=== PATIENT | male | born 1955 | race Caucasian/White ===

== ENCOUNTER → 2024-12-24 09:41 | Outpatient (REF) | payer OTHER, SELFPAY ==
[2024-12-24] VITALS (9 sets, daily range): BP systolic 69–126; BP diastolic 55–78; BMI 17.5
[2024-12-24] MEDS: ANCEF 10 IV (10:57)
== END ==
LOC: RADI 09:41
PROVIDERS: ATTENDING PHYSICIAN Physician Assistant Medical
DX: C08.9 Malignant neoplasm of major salivary gland, unspecified (principal)
CPT/HCPCS: 36561; 76937; 77001; 99152; C1788

== ENCOUNTER 2025-02-14 16:48 | Emergency (ER) | payer OTHER, SELFPAY ==
[2025-02-14] VITALS (12 sets, daily range): BP systolic 77–122; BP diastolic 45–80; BMI 16.3
[2025-02-14 17:21] LABS: Hematocrit 26.3 % (39.0-52.0); Hemoglobin 8.7 g/dL (13.0-18.0); Mean Corp Hgb Conc. 33.1 g/dL (33.0-37.0); Mean Corpuscular Volume 101.5 fL (80.0-94.0); Nucleated Red Blood Cells % 0 % (-); Platelet Count 103 10^3/uL (130-400); Red Cell Dist. Width 16.6 % (11.5-14.5)
[2025-02-14 17:41] LABS: ALT (SGPT) 11 U/L (0-50); AST (SGOT) 21 U/L (17-59); Albumin 3.1 g/dl (3.5-5.0); Alkaline Phosphatase 57 U/L (38-126); Blood Urea Nitrogen 12 mg/dl (9-20); Calcium 8.1 mg/dl (8.4-10.2); Carbon Dioxide 29 mmol/L (22-30); Chloride 105 mmol/L (98-107); Estimated Creatinine Clearance 77 ml/min; Glucose 90 mg/dl (70-99); Potassium 4.7 mmol/L (3.5-5.1); Sodium 134 mmol/L (135-145); Total Protein 5.3 g/dl (6.3-8.2); eGFR > 60.00
[2025-02-14] MEDS: NSS 1000 IV (17:44)
--- NOTE | 2025-02-14 17:53 | ED.GENMED ---
History of Present Illness
General
Chief Complaint: Blood Pressure Problem
Source: patient and spouse
Time Seen by Provider: 02/14/25 17:00
History of Present Illness
History of Present Illness:
This patient is a very pleasant 69-year-old male with a diagnosis of salivary gland cancer, currently getting treatment. He suffers from episodes of hypotension, likely related to poor p.o. intake and has a nurse who comes to his home to administer
IV fluids twice a week. Patient was normal tensive yesterday, but when he went to his oncologist today he was noted to be hypotensive. He was given IV fluid with minimal relief of hypotension. Patient is without complaints. He denies chest pain,
shortness of breath, dizziness/lightheadedness, abdominal pain, vomiting, extreme fatigue. He did state that he felt a little nauseous this morning but that is now resolved. He is eager to go home and wants to eat now.
Past History
Past History
ED Past Medical History: Other (Salivary gland cancer)
ED Past Surgical History: Orthopedic and Other (hernia, appendectomy, dental)
Social History
Tobacco: Smoker
Alcohol: Occasional
Drug: None
Personal:
Living: with family
Phy Exam
Physical Exam
Physical Exam:
GENERAL: Alert , in no apparent distress, very thin
EYE: pupils equal and reactive
NECK: Supple, no significant adenopathy.
ENT: o/p clr, mm slightly dry
CARDIAC: Regular rate and rhythm .
LUNGS: Clear breath sounds bilaterally, no acute respiratory distress, no wheezes/rales/rhonchi
ABDOMEN: Soft, without focal tenderness, no r/g, no cvat
NEUROLOGICAL: Alert and oriented, no focal neuro deficits
SKIN: Warm and dry, skin intact.
MUSCULOSKELETAL: No edema, well perfused.
PSYCH: Normal and appropriate interaction.
Course
Orders/Labs/Results
Orders:
Orders
02/14/25 17:03
EKG [Electrocardiogram (*1)] Urgent
Reason for Study: Fatigue / Weakness
EKG- Treatment ONCE
02/14/25 17:12
CMP [Comprehensive Metabolic Panel] Urgent
Complete Blood Count/With Diff Urgent
02/14/25 17:33
0.9% Sodium Chloride 1000 ml [Nss] 1,000 ml IV BOLUS
Abnormal Lab Results
02/14/25
17:12
WBC 4.2 L 10^3/uL
(4.8-10.8)
RBC 2.59 L 10^6/uL
(4.70-6.10)
Hgb 8.7 L g/dL
(13.0-18.0)
Hct 26.3 L %
(39.0-52.0)
MCV 101.5 H fL
(80.0-94.0)
MCH 33.6 H pg
(27.0-31.0)
RDW 16.6 H %
(11.5-14.5)
Plt Count 103 L 10^3/uL
(130-400)
Absolute Lymphs (auto) 1.0 L 10^3/uL
(1.2-3.4)
Monocytes % 14.4 H %
(1.7-9.3)
Sodium 134 L mmol/L
(135-145)
Calcium 8.1 L mg/dl
(8.4-10.2)
Total Protein 5.3 L g/dl
(6.3-8.2)
Albumin 3.1 L g/dl
(3.5-5.0)
02/14/25 17:12
02/14/25 17:12
Vital Signs
Initial and Last Documented VS:
Initial Vital Signs
Temp Pulse Resp BP Pulse Ox
98.4 F 71 16 77/45 97
02/14/25 16:52 02/14/25 16:52 02/14/25 16:52 02/14/25 16:52 02/14/25 16:52
Last Documented Vital Signs
Temp Pulse Resp BP Pulse Ox
98.4 F 61 16 95/68 99
02/14/25 16:52 02/14/25 18:57 02/14/25 18:57 02/14/25 18:57 02/14/25 18:57
*Pulse Oximetry
SaO2: 99
Oxygen Mode of Delivery: Room air
Update Note
Update Note:
Patient presents to the Emergency Department with ___hypotension
Number and Complexity of Problems Addressed at the Encounter
� Chronic conditions affecting care:
� Acute Exacerbation and/or Progression of Chronic Illness:
� Differential Diagnosis includes: But not limited to medication effect, dehydration, sepsis, etc. etc.
Amount and/or Complexity of Data to be Reviewed and Analyzed
� I performed an independent evaluation of and my interpretation is:
EKG:
CT:
Xrays:
Laboratory Studies: Mild neutropenia, anemia at 8.7, thrombocytopenia all expected given patient is currently getting cancer treatment.
Other:
� Review of other/old records reveals:
� Clinical information was obtained by an independent historian:
� Prescriptions/Medications Considered but not given:
� Further testing considered but not performed:
Risk of Complications and/or Morbidity or Mortality of Patient Management
� Social determinants of health affecting care:
� Discussion with other providers (PCP, Hospitalists, Consultants, etc):
� Escalation of care including admission/observation vs risk of discharge considered: Long discussion with patient and his , he will be given copies of his labs to bring to his doctor and compare. I suspect his lab values
are related to his cancer treatment. His blood pressure is improved and he is eating a sandwich here. He denies any complaints. No vomiting, chest pain, palpitations, dizziness. Low clinical suspicion at this time for bacteremia/sepsis given
only mild neutropenia, no fever, no symptoms to suggest specific infection, etc. Discussed with patient importance of follow-up and reasons to return to the ER.
ED Attending Note
-
Portions of this chart may have been created with voice recognition software.� Occasional wrong word or��sound alike� substitutions may have occurred due to the inherent limitations of voice recognition software.
Discharge Plan
Departure
Patient Disposition: Home (Routine Discharge)
Date of Disposition: 02/14/25
Time of Disposition: 18:59
Patient with high blood pressure during this ER visit?: No
Condition: Good
Discharge Problem:
Hypotension
Instructions: General
Prescriptions:
No Action
acetaminophen 500 mg Tablet
1,000 mg PO Q8H PRN (Reason: mild pain)
ibuprofen 200 mg Capsule
600 mg PO Q6H PRN (Reason: moderate pain)
sennosides-docusate sodium 8.6-50 mg Tablet
2 tab-cap PO [id number] PRN (Reason: constipation)
ondansetron 8 mg Tablet,Disintegrating
8 mg PO Q8H PRN (Reason: nausea)
fentanyl 100 mcg/hr Patch 72 Hour
1 patch TRANSDERMAL Q72H
Rx Instructions:
with 25mcg/hr patch to equal 125mcg/min
dexamethasone 4 mg Tablet
4 mg PO DAILY
docusate sodium 100 mg Capsule
100 mg PO BID PRN (Reason: constipation)
lidocaine HCl [Lidocaine Viscous] 2 % Solution
10 ml MUCOUS MEMBRANE Q8HPRN PRN (Reason: mouth pain)
sodium chloride 0.9 % Parenteral Solution
1 ea IV MOTH
fentanyl 25 mcg/hr Patch 72 Hour
1 patch TRANSDERMAL Q72H
Rx Instructions:
with 100mcg patch to equal 125mcg/hr dose
lactulose 20 gram Packet
30 g PO Q8HPRN PRN (Reason: constipation)
duloxetine 60 mg Capsule,Delayed Release(Dr/Ec)
60 mg PO DAILY
megestrol 625 mg/5 mL (125 mg/mL) Suspension
625 mg PO DAILY
oxycodone 20 mg Tablet
20 mg PO Q4H PRN (Reason: severe pain)
loratadine 10 mg Capsule
10 mg PO DAILY
naloxone 4 mg/actuation [place],Non-Aerosol
4 mg INTRANASAL Q3M PRN (Reason: overdose)
Referrals:
NONE,* [Active, Internal Medicine]
Activity Restrictions/Additional Instructions:
IF YOU DEVELOP DIZZINESS, CHEST PAIN, SHORTNESS OF BREATH, FEVER, VOMITING, ABDOMINAL PAIN, OR OTHER WORRISOME SIGNS, PLEASE RETURN TO THE ER IMMEDIATELY!
Interventions
Interventions:
*Risk Screen - Suicide Last Done: 02/14/25 16:52
*General Assessment Last Done: 02/14/25 16:52
*Neglect/Abuse Screening Last Done: 02/14/25 16:52
*ED- Fall Risk Assessment Last Done: 02/14/25 17:16
*ED COVID-19 Vaccine History Last Done: 02/14/25 17:16
ED- Cardiac Assessment Last Done: 02/14/25 17:20
ED- Neurological Assessment Last Done: 02/14/25 17:20
ED- Pulmonary Assessment Last Done: 02/14/25 17:20
Discharge Date and Time
Print Language: KHMER
--- NOTE | 2025-02-14 19:39 | VATNOTE ---
right subq port deaccessed per protocol. Brisk blood return noted prior to.
== END 2025-02-14 19:54 | disposition home or self-care (01) ==
LOC: EMR 16:48
PROVIDERS: EMERGENCY PHYSICIAN Emergency Medicine; FAMILY PHYSICIAN Family Medicine
DX: I95.9 Hypotension, unspecified (principal); F17.200 Nicotine dependence, unspecified, uncomplicated; Z85.818 Personal history of malignant neoplasm of other sites of lip, oral cavity, and pharynx; Z90.49 Acquired absence of other specified parts of digestive tract
CPT/HCPCS: 99283; 96374; 80053; 85025; 93005